=== PATIENT | female | born 1970 | race Caucasian/White ===

== ENCOUNTER 2020-10-28 09:11 | Emergency (ER) | payer OTHER, BC ==
[2020-10-28 12:44] LABS: HEMOGLOBIN 12.7 gm/dl (12.3-15.3); RED BLOOD COUNT 4.13 M/UL (4.00-5.10); WHITE BLOOD COUNT 14.6 K/UL (4.5-11.0)
[2020-10-28 12:55] LABS: BUN/CREATININE RATIO 22 (0-10)
== END 2020-10-28 19:20 ==
LOC: ER1 09:11
PROVIDERS: Physician Assistant Medical
DX: S22.43XA Multiple fractures of ribs, bilateral, initial encounter for closed fracture (principal); S82.141A Displaced bicondylar fracture of right tibia, initial encounter for closed fracture; R77.8 Other specified abnormalities of plasma proteins; K21.9 Gastro-esophageal reflux disease without esophagitis; F17.210 Nicotine dependence, cigarettes, uncomplicated; Z88.8 Allergy status to other drugs, medicaments and biological substances; V49.40XA Driver injured in collision with unspecified motor vehicles in traffic accident, initial encounter; Y92.410 Unspecified street and highway as the place of occurrence of the external cause
CPT/HCPCS: 29530; 71046; 71260; 73090; 73552; 73564; 73590; 80053; 84484; 85025; 93005; 96374; 96375; 96376; 99285; J2270; J2405; Q9967

== ENCOUNTER → 2021-06-06 | Outpatient (CLI) | payer BC | LOC: EXRD 05-08 08:30 | DX: M81.0 Age-related osteoporosis without current pathological fracture (principal); M85.852 Other specified disorders of bone density and structure, left thigh | CPT/HCPCS: 77080 ==